=== PATIENT | female | born 1950 | race Caucasian/White ===

== ENCOUNTER 2017-10-22 11:31 | Day surgery (SDC) | payer MEDICARE ==
[~2017-10-22] VITALS: Ht 172.7 cm; Wt 88.6 kg
[~2017-10-22 11:31] MED LIST: ANTACID ULTRA1177 MG; ASCO500; ASPI81CH; CHOL10002; FISH OIL 1,0001 EAC1; GLUC500; LOSA25; NEPHRO-VITE RX1 EACH; PRAV20; SERT50; UBID10
== END 2017-10-22 14:18 | disposition home or self-care (01) ==
LOC: ORSCSDS 11:31
PROVIDERS: Internal Medicine Gastroenterology
PROC: 0DBK8ZX Excision of Ascending Colon, Via Natural or Artificial Opening Endoscopic, Diagnostic (ICD-10-PCS; principal; 2017-10-22 13:00)
DX: Z12.11 Encounter for screening for malignant neoplasm of colon (principal); D12.2 Benign neoplasm of ascending colon; K64.8 Other hemorrhoids; K57.30 Diverticulosis of large intestine without perforation or abscess without bleeding; E78.5 Hyperlipidemia, unspecified; F41.9 Anxiety disorder, unspecified; I10 Essential (primary) hypertension; N28.9 Disorder of kidney and ureter, unspecified; E66.9 Obesity, unspecified; Z68.30 Body mass index [BMI] 30.0-30.9, adult; Z79.82 Long term (current) use of aspirin; Z79.899 Other long term (current) drug therapy
CPT/HCPCS: 88305; J7040

== ENCOUNTER → 2018-06-28 | Outpatient (CLI) | payer MEDICARE | END | disposition home or self-care (01) | LOC: LAB SHORT 14:50 → LAB EV 14:50 | DX: N39.3 Stress incontinence (female) (male) (principal) | CPT/HCPCS: 87086 ==

== ENCOUNTER 2018-12-30 07:24 | Day surgery (SDC) | payer MEDICARE ==
[~2018-12-30 07:24] MED LIST changes: -ANTACID ULTRA1177 MG; +ANTACID ULTRA1177 MG PO; -ASPI81CH; +ASPI81CH PO; -FISH OIL 1,0001 EAC1; +FISH OIL 1,0001 EAC1 PO; -GLUC500; +GLUC500 PO; -LOSA25; +LOSA25 PO; -NEPHRO-VITE RX1 EACH; +NEPHRO-VITE RX1 EACH PO; -PRAV20; +PRAV20 PO; -SERT50; +SERT50 PO; -UBID10; +UBID10 PO
[2019-01-24] MEDS ORDERED: VITAMIN C500 M1 PO (15:34)
[2019-01-24] MEDS ORDERED: VITAMIN D350000 UNIT PO (15:34)
[2019-01-24] MEDS ORDERED: TURMERIC PO (15:35)
[2019-01-24] MEDS ORDERED: CENTRUM SILVER1 EAC2 PO (15:36)
[2019-01-24] MEDS ORDERED: STOOL SOFTENER PO (15:36)
== END 2018-12-30 23:09 | disposition home or self-care (01) ==
LOC: MOI US 07:24 → MOI MAM 07:30 → MOI US 07:30
DX: C50.412 Malignant neoplasm of upper-outer quadrant of left female breast (principal); Z17.0 Estrogen receptor positive status [ER+]
CPT/HCPCS: 19083; 77065; 88305; 88360; A4648

== ENCOUNTER 2019-01-23 08:27 | Day surgery (SDC) | payer MEDICARE ==
[2019-01-24] MEDS ORDERED: VITAMIN C500 M1 PO (15:34)
[2019-01-24] MEDS ORDERED: VITAMIN D350000 UNIT PO (15:34)
[2019-01-24] MEDS ORDERED: TURMERIC PO (15:35)
[2019-01-24] MEDS ORDERED: STOOL SOFTENER PO (15:36)
[2019-01-24] MEDS ORDERED: CENTRUM SILVER1 EAC2 PO (15:36)
== END 2019-01-23 22:56 | disposition home or self-care (01) ==
LOC: MOI US 08:27
DX: C50.412 Malignant neoplasm of upper-outer quadrant of left female breast (principal); Z79.899 Other long term (current) drug therapy
CPT/HCPCS: 19285; 77065

== ENCOUNTER 2020-08-28 14:47 | Emergency (ER) | payer MEDICARE ==
[~2020-08-28] VITALS: Ht 172.7 cm; Wt 99.8 kg
[~2020-08-28 14:47] MED LIST changes: +CENTRUM SILVER1 EAC2 PO; +STOOL SOFTENER PO; +TURMERIC PO; +VITAMIN C500 M1 PO; +VITAMIN D350000 UNIT PO
[2020-08-28] MEDS ORDERED: OXYACE7.5T PO (16:36)
[2020-08-28] MEDS ORDERED: CRUTCH2 XX (16:37)
== END 2020-08-28 17:08 | disposition home or self-care (01) ==
LOC: ER 14:47
DX: S82.302A Unspecified fracture of lower end of left tibia, initial encounter for closed fracture (principal); S82.832A Other fracture of upper and lower end of left fibula, initial encounter for closed fracture; Z79.82 Long term (current) use of aspirin; Z79.899 Other long term (current) drug therapy; W10.9XXA Fall (on) (from) unspecified stairs and steps, initial encounter
CPT/HCPCS: 27810; 36415; 73600; 73610; 99152; 99283-25; A9270; J2704; J7030

== ENCOUNTER 2020-09-06 09:12 | Day surgery (SDC) | payer MEDICARE ==
[~2020-09-06] VITALS: Ht 172.7 cm; Wt 99.7 kg
[~2020-09-06 09:12] MED LIST changes: +CRUTCH2 XX; +OXYACE7.5T PO
--- NOTE | 2020-09-06 12:10 | NUR ---
09/06/20 1210 Amadna Antonio BUPIVACAINE 0.5% 30 MLS MIXED W/ EPI 0.15 ML PER ORDER TO CONSTITITUE BUPIVACAINE 0.5% 1:200,000 FOR INJECTION AT OPSITE BY DR MACIEL.
== END 2020-09-06 14:33 | disposition home or self-care (01) ==
LOC: ORSCSDS 09:12
PROVIDERS: Podiatrist Foot & Ankle Surgery
PROC: 0QSH04Z Reposition Left Tibia with Internal Fixation Device, Open Approach (ICD-10-PCS; principal; 2020-09-06 10:45)
PROC: 0QSK04Z Reposition Left Fibula with Internal Fixation Device, Open Approach (ICD-10-PCS; principal; 2020-09-06 10:45)
DX: S82.852A Displaced trimalleolar fracture of left lower leg, initial encounter for closed fracture (principal); I10 Essential (primary) hypertension; G47.33 Obstructive sleep apnea (adult) (pediatric); E78.5 Hyperlipidemia, unspecified; Z79.899 Other long term (current) drug therapy; Z79.82 Long term (current) use of aspirin
CPT/HCPCS: A9270; C1713; C1769; J0171; J0690; J1885; J2250; J2704; J3010; J7120

== ENCOUNTER 2020-11-19 15:16 | Emergency (ER) | payer MEDICARE ==
[~2020-11-19] VITALS: Ht 175.3 cm; Wt 98.0 kg
[2020-11-19 16:25] LABS: Source, Urine Clean Catch
[2020-11-19 16:45] LABS: Appearance, Urine Hazy (Clear); Bilirubin, Urine Neg (Neg); Blood, Urine 3+ (Neg); Color, Urine Yellow (P-Yellow); Glucose Qualitative, Urine Neg (Neg); Ketones, Urine 1+ (Neg); Leukocyte Esterase, Urine 1+ (Neg); Nitrite, Urine Neg (Neg); Protein, Urine 1+ (Neg); Specific Gravity, Urine 1.025 (1.003-1.022); Urobilinogen, Urine NORM (Normal)
[2020-11-19 17:03] LABS: Bacteria Mod /hpf; Calcium Oxalate Crystals Mod /hpf; Red Blood Cells, Urine Rare /hpf (0-2); Squamous Epithelial Cells Rare /hpf (Few); White Blood Cells, Urine 0-2 /hpf (0-5)
[2020-11-19 19:50] LABS: BASOPHILS ABSOLUTE AUTO 0.05 K/mm3 (0.00-0.23); BASOPHILS PERCENT AUTO 1 % (0-2); EOSINOPHILS ABSOLUTE AUTO 0.08 K/mm3 (0.00-0.68); EOSINOPHILS PERCENT AUTO 1 % (0-6); Hemoglobin 13.2 g/dL (11.5-16.0); IMMATURE GRAN ABSOLUTE AUTO 0.03 K/mm3 (0.00-0.10); IMMATURE GRAN PERCENT AUTO 0 % (0-1); LYMPHOCYTES ABSOLUTE AUTO 1.78 K/mm3 (0.84-5.20); LYMPHOCYTES PERCENT AUTO 19 % (21-46); MONOCYTES ABSOLUTE AUTO 0.88 K/mm3 (0.16-1.47); MONOCYTES PERCENT AUTO 9 % (4-13); Mean Corpuscular HGB Conc 32.2 g/dL (31.5-36.5); Mean Corpuscular Volume 93 fL (80-100); NEUTROPHILS PERCENT AUTO 71 % (41-73); Platelet Count 260 K/mm3 (150-400); RDW Coefficient Variation 13.7 % (11.7-14.2); RDW Standard Deviation 46.4 fL (35.1-46.3); White Blood Cell Count 9.52 K/mm3 (4.00-11.30)
[2020-11-19 20:13] LABS: Alanine Aminotransfer (ALT/SGP 27 U/L (12-78); Albumin, Blood 3.5 g/dL (3.4-5.0); Albumin/Globulin Ratio 0.8 (0.8-1.8); Alk Phos 99 U/L (50-136); Anion Gap 6 mmol/L (6-16); Aspartate Aminotrans (AST/SGOT 22 U/L (12-37); Bilirubin, Total 0.5 mg/dL (0.1-1.0); Blood Urea Nitrogen 11 mg/dL (8-24); Bun/Creatinine Ratio 13.3 (12.0-20.0); CO2, Blood 24 mmol/L (21-32); Calcium, Blood 9.2 mg/dL (8.5-10.1); Chloride, Blood 105 mmol/L (98-108); Creatinine, Blood 0.83 mg/dL (0.40-1.00); Globulin, Blood 4.3 g/dL (2.2-4.0); Glomerular Filtration Rate >60 (60-); Glucose, Blood 113 mg/dL (70-99); Potassium, Blood 3.8 mmol/L (3.5-5.5); Sodium, Blood 135 mmol/L (136-145); Total Protein, Blood 7.8 g/dL (6.4-8.2); Troponin I <0.015 ng/mL (0.000-0.040)
[2020-11-19] MEDS ORDERED: XARELTO20 MG PO ×2 (21:00)
[2020-11-19] MEDS ORDERED: Acetaminophen500 MG PO (21:06)
[2020-11-19] MEDS ORDERED: Robaxin750 MG PO (21:06)
== END 2020-11-19 21:28 | disposition home or self-care (01) ==
LOC: ER 15:16
PROVIDERS: Physician Assistant; Student in an Organized Health Care Education/Training Program
DX: I26.93 Single subsegmental thrombotic pulmonary embolism without acute cor pulmonale (principal); Z85.3 Personal history of malignant neoplasm of breast; Z79.899 Other long term (current) drug therapy
CPT/HCPCS: 36415; 71260; 74177; 80053; 81001; 83880; 84484; 85025; 85730; 87086; 93005; 93010; 99284-25; A9270; Q9967

== ENCOUNTER → 2020-11-26 | Outpatient (CLI) | payer MEDICARE ==
[~2020-11-26] MED LIST changes: +Acetaminophen500 MG PO; +Robaxin750 MG PO; +XARELTO20 MG PO
== END ==
LOC: LAB SHORT 13:30 → LAB 13:30
DX: R30.0 Dysuria (principal)
CPT/HCPCS: 87086

== ENCOUNTER → 2022-11-24 | Outpatient (CLI) | payer MEDICARE | LOC: LAB SHORT 15:38 → PLD 15:38 | DX: L57.0 Actinic keratosis (principal) | CPT/HCPCS: 88305 ==